=== PATIENT | male | born 2000 | race Caucasian/White ===

== ENCOUNTER → 2023-10-11 | Outpatient (CLI) | payer BC ==
[2023-10-11 09:49] VITALS: BP 166/85; PULSE 64; RESP 17; TEMP 97.9
--- NOTE | 2023-10-11 10:10 | P.GSHP ---
History of Present Illness H&P Date: 10/11/23 Chief Complaint: mass left breast Toni is a 23 year old white male seen in consultation for DR. Banerjee regarding a left breast mass. He noted the lump about 3 months ago, it was tender when he noted this. He states several years ago he had a right breast lump and it went away on it's own. He had an ultrasound done at [facility] on 08-09-23. He is not complaining of any recent trauma or infection of his breast. Is not complaining of any testicular lumps or masses. He has never had any surgery on his breast. Findings reveal a 4 mm also mass in the left breast felt to be most likely benign and repeat ultrasound in 3 months was recommended. It has circumscribed margins but no clear posterior acoustic enhancement. Caffeine: 4 to 5 pops/day nicotine: vapes chocolate: occasional Family History: paternal uncle: skin cancer, ? type Surgical History: nevis removed left ankle concern for cancer multiple other nevi removed Medical History: depression difficulty with sleep Social History: nicotine: vapes alcohol: daily beers marijuana: stopped 10 months ago, used to smoke daily - Constitutional Constitutional: Denies chills, Denies fever - EENT Eyes: denies blurred vision, denies pain Ears: deny: decreased hearing, tinnitus Ears, nose, mouth and throat: Denies headache, Denies sore throat - Breasts Breasts: bilateral: as per HPI - Cardiovascular Cardiovascular: Denies chest pain, Denies shortness of breath - Respiratory Respiratory: Denies cough, Denies 7 - Gastrointestinal Gastrointestinal: Denies abdominal pain, Denies diarrhea, Denies nausea, Denies vomiting - Genitourinary (Male) Genitourinary: Denies dysuria, Denies hematuria - Musculoskeletal Musculoskeletal: Denies myalgias - Integumentary Integumentary: Denies pruritus, Denies rash - Neurological Neurological: Denies numbness, Denies weakness - Psychiatric Psychiatric: Reports depression - Endocrine Endocrine: Denies fatigue, Denies weight change - Hematologic/Lymphatic Comment: none - Allergic/Immunologic Allergic/Immunologic: Reports as per HPI Past Medical History Past Medical History: Asthma Additional Past Medical History / Comment(s): CHILDHOOD ASTHMA History of Any Multi-Drug Resistant Organisms: None Reported Past Surgical History: No Surgical Hx Reported Past Anesthesia/Blood Transfusion Reactions: No Reported Reaction Past Psychological History: ADD/ADHD, Depression Smoking Status: Current every day smoker Past Alcohol Use History: Occasional Past Drug Use History: Marijuana Medications and Allergies Home Medications Medication Instructions Recorded Confirmed Type Multivitamin [Multivitamins Adult 1 tab PO DAILY 10/11/23 10/11/23 History Gummies] Sertraline [Zoloft] 50 mg PO DAILY 10/11/23 10/11/23 History hydrOXYzine HCL 25 mg PO HS 10/11/23 10/11/23 History Allergies Allergy/AdvReac Type Severity Reaction Status Date / Time Tetanus Vaccines and Toxoid Allergy Swelling Unverified 10/11/23 09:30 Face [place] Allergy Rash/Hives Uncoded 10/11/23 09:30 Surgical - Exam Vital Signs Temp Pulse Resp BP Pulse Ox 97.9 F 64 17 166/85 97 10/11/23 09:36 10/11/23 09:36 10/11/23 09:36 10/11/23 09:36 10/11/23 09:36 - General moderate distress - Eyes normal ocular movement - Neck trachea midline - Cardiovascular Rhythm: regular Heart Sounds: normal: S1, S2 - Abdomen Abdomen: soft, non tender, no guarding, no rigid, no rebound - Genitourinary no testicular masses normal penis with no external lesions, testicles non-tender - Integumentary normal turgor/ multiple tattoos - Neurologic no disoriented, no combative - Musculoskeletal normal gait - Psychiatric oriented to time, oriented to person, oriented to place, speech is normal, memory intact Breast Exam: Right breast: Multi-positional exam no dominant masses or nodules of concern Right axilla: No adenopathy of concern Left breast: Multi-positional exam firm nodularity posterior to the nipple areolar complex/may be consistent with gynecomastia Left axilla: No adenopathy of concern Results ultrasound reviewed Assessment and Plan Assessment: Impression: Mass directly behind the left nipple areolar complex most likely consistent with gynecomastia Ultrasound reviewed Plan: Repeat ultrasound 3 months in November for appointment at that time To follow up sooner any questions or concerns Cc: Dr. Banerjee
== END ==
LOC: WWCWWP 09:03
PROVIDERS: ATTEND Surgery
DX: F17.290 Nicotine dependence, other tobacco product, uncomplicated (principal); J45.909 Unspecified asthma, uncomplicated; N63.20 Unspecified lump in the left breast, unspecified quadrant; Z88.7 Allergy status to serum and vaccine; Z91.018 Allergy to other foods

== ENCOUNTER → 2023-11-12 | Outpatient (CLI) | payer BC ==
--- NOTE | 2023-11-12 08:38 | USB ---
Reason for Exam: Clinical finding. Technique: Method: Whole Breast Handheld. Findings: The whole breast of both breasts, the axilla of both breasts and the retroareolar of both breasts were scanned. There is a 0.5 x 0.3 x 0.6 cm anechoic structure in the periareolar region 12:00 position. This is small but appears cystic. This was present previously measuring 0.4 x 0.3 x 0.2 cm. Short-term follow-up recommended. No suspicious abnormality evident by ultrasound within the left breast. Overall Assessment: Probably benign, BI-RAD 3 Management: Diagnostic Breast Ultrasound of the right breast in 3 months. A clinical breast exam by your physician is recommended on an annual basis and results should be correlated with mammographic findings. This exam should not preclude additional follow-up of suspicious palpable abnormalities. Results were given to the patient verbally at the time of exam. Electronically signed and approved by: Marcelino Robb D.O. Radiologis
== END | disposition home or self-care (01) ==
LOC: RADUSWWP 08:01
PROVIDERS: ATTEND Surgery
DX: N63.10 Unspecified lump in the right breast, unspecified quadrant (principal); N63.20 Unspecified lump in the left breast, unspecified quadrant

== ENCOUNTER → 2023-11-28 | Outpatient (CLI) | payer BC ==
--- NOTE | 2023-11-28 15:08 | P.PN ---
Subjective Progress Note Date: 11/28/23 mass left breast Toni is a 23 year old white male seen in consultation for DR. Banerjee regarding a left breast mass. He noted the lump about 3 months ago, it was tender when he noted this. He states several years ago he had a right breast lump and it went away on it's own. He had an ultrasound done at [facility] on 08-09-23. He is not complaining of any recent trauma or infection of his breast. Is not complaining of any testicular lumps or masses. He has never had any surgery on his breast. Findings reveal a 4 mm also mass in the left breast felt to be most likely benign and repeat ultrasound in 3 months was recommended. It has circumscribed margins but no clear posterior acoustic enhancement. ultrasound bilateral breast 11-12-[address] Carrillo, probable left breast gynecomastia, right breast cyst; recently has begun to feel some nodularity behind the right nipple areolar complex in addition to behind the left nipple areolar complex. No other lumps masses or nodules of concern in either breast. Caffeine: 4 to 5 pops/day nicotine: vapes chocolate: occasional Family History: paternal uncle: skin cancer, ? type Surgical History: nevis removed left ankle concern for cancer multiple other nevi removed Medical History: depression difficulty with sleep Social History: nicotine: vapes alcohol: daily beers marijuana: stopped 10 months ago, used to smoke daily - Constitutional Constitutional: Denies chills, Denies fever - EENT Eyes: denies blurred vision, denies pain Ears: deny: decreased hearing, tinnitus Ears, nose, mouth and throat: Denies headache, Denies sore throat - Breasts Breasts: bilateral: as per HPI - Cardiovascular Cardiovascular: Denies chest pain, Denies shortness of breath - Respiratory Respiratory: Denies cough - Gastrointestinal Gastrointestinal: Denies abdominal pain, Denies diarrhea, Denies nausea, Denies vomiting - Genitourinary (Male) Genitourinary: Denies dysuria, Denies hematuria - Musculoskeletal Musculoskeletal: Denies myalgias - Integumentary Integumentary: Denies pruritus, Denies rash - Neurological Neurological: Denies numbness, Denies weakness - Psychiatric Psychiatric: Reports depression - Endocrine Endocrine: Denies fatigue, Denies weight change - Hematologic/Lymphatic Comment: none - Allergic/Immunologic Allergic/Immunologic: Reports as per HPI Past Medical History Past Medical History: Asthma Additional Past Medical History / Comment(s): CHILDHOOD ASTHMA History of Any Multi-Drug Resistant Organisms: None Reported Past Surgical History: No Surgical Hx Reported Past Anesthesia/Blood Transfusion Reactions: No Reported Reaction Past Psychological History: ADD/ADHD, Depression Smoking Status: Current every day smoker Past Alcohol Use History: Occasional Past Drug Use History: Marijuana Medications and Allergies Home Medications Medication Instructions Recorded Confirmed Type Multivitamin [Multivitamins Adult 1 tab PO DAILY 10/11/23 10/11/23 History Gummies] Sertraline [Zoloft] 50 mg PO DAILY 10/11/23 10/11/23 History hydrOXYzine HCL 25 mg PO HS 10/11/23 10/11/23 History Allergies Allergy/AdvReac Type Severity Reaction Status Date / Time Tetanus Vaccines and Toxoid Allergy Swelling Unverified 10/11/23 09:30 Face [place] Allergy Rash/Hives Uncoded 10/11/23 09:30 Objective - Constitutional General appearance: Present: cooperative - EENT Eyes: Present: EOMI ENT: Present: hearing grossly normal - Neck Neck: Present: normal ROM - Respiratory Respiratory: bilateral: CTA - Cardiovascular Heart sounds: normal: S1, S2 - Gastrointestinal General gastrointestinal: Present: soft - Integumentary Integumentary: Present: normal turgor - Musculoskeletal Musculoskeletal: Present: gait normal - Psychiatric Psychiatric: Present: A&O x's 3, appropriate affect, intact judgment & insight - Additional findings Additional findings: Patient: Inspection: Breast appear symmetric Palpation: Right breast: Multi positional exam slight nodularity behind the nipple areolar complex otherwise no dominant masses or nodules of concern Right axilla: No adenopathy of concern Left breast: Multi positional exam nodularity behind the nipple areolar complex, otherwise no dominant masses or nodules of concern Left axilla: No adenopathy of concern Ultrasound personally reviewed with Dr. Carrillo, findings in the left breast consistent with gynecomastia, small cyst noted in the right breast Assessment and Plan Assessment: Impression: Lateral gynecomastia Plan: Bilateral mammogram with appointment to follow this CC: Dr. Banerjee
[2023-11-28 15:22] VITALS: BP 138/84; PULSE 73; RESP 17; TEMP 98.3
== END ==
LOC: WWCWWP 14:53
PROVIDERS: ATTEND Surgery
DX: N62 Hypertrophy of breast (principal); J45.909 Unspecified asthma, uncomplicated; F32.A Depression, unspecified; F98.8 Other specified behavioral and emotional disorders with onset usually occurring in childhood and adolescence; F90.9 Attention-deficit hyperactivity disorder, unspecified type; F12.90 Cannabis use, unspecified, uncomplicated; F17.290 Nicotine dependence, other tobacco product, uncomplicated; Z88.7 Allergy status to serum and vaccine; Z88.8 Allergy status to other drugs, medicaments and biological substances

== ENCOUNTER → 2023-12-05 | Outpatient (CLI) | payer BC ==
--- NOTE | 2023-12-05 10:25 | MM ---
Reason for Exam: Clinical finding. Baseline mammogram. Indicated Problems: Pain of both sides (Global) for 3 Week(s). Prior Study Comparison: Patient's first Mammogram. Tissue Density: The breast tissue is almost entirely fat. Findings: Analyzed By CAD. Retroareolar densities seen bilaterally which may reflect gynecomastia. Recent ultrasound recommended follow-up in January 2024. Overall Assessment: Probably benign, BI-RAD 3 Management: Diagnostic Breast Ultrasound of both breasts in 3 months. . Results were given to the patient verbally at the time of exam. Patient should continue monthly self-breast exams. A clinical breast exam by your physician is recommended on an annual basis. This exam should not preclude additional follow-up of suspicious palpable abnormalities. Note on Angelika scores and lifetime risk: 1. A Angelika score greater than 3% is considered moderate risk. If this is the case, consider specialist referral to assess eligibility for a risk reducing agent. 2. If overall lifetime risk for the development of breast cancer is 20% or higher, the patient may qualify for future screening with alternating mammogram and breast MRI. Electronically signed and approved by: Moe Matt M.D. Radiologis
== END | disposition home or self-care (01) ==
LOC: RADMAMWWP 09:18
PROVIDERS: ATTEND Surgery
DX: R92.313 Mammographic fatty tissue density, bilateral breasts (principal); N64.4 Mastodynia
CPT/HCPCS: 77062; 77066

== ENCOUNTER 2025-02-26 18:17 | Emergency (ER) | payer BC ==
--- NOTE | 2025-02-26 19:17 | ED ---
General Adult HPI - General Chief complaint: Abdominal Pain Stated complaint: Abd pain Time Seen by Provider: 02/26/25 18:39 Source: patient, RN notes reviewed, old records reviewed Mode of arrival: ambulatory Limitations: no limitations - History of Present Illness Initial comments: 25-year-old male presenting for evaluation of intermittent left flank pain. Patient was diagnosed with kidney stone within the last 2 weeks and he has been following with his primary care provider. He had an outpatient ultrasound and abdominal x-ray. Patient states that currently he does not have any flank pain but when he urinates he has pain into his left flank. He also has had intermittent hematuria. No fevers. No vomiting. Patient denies any pain complaints at the time my evaluation and denies chronic medical conditions. - Related Data Home Medications Medication Instructions Recorded Confirmed Multivitamin [Multivitamins Adult 1 tab PO DAILY 10/11/23 11/28/23 Gummies] Sertraline [Zoloft] 50 mg PO DAILY 10/11/23 11/28/23 hydrOXYzine HCL 25 mg PO HS 10/11/23 11/28/23 Previous Rx's Medication Instructions Recorded Ibuprofen [Motrin] 600 mg PO Q8HR PRN #24 tab 02/26/25 Tamsulosin [Flomax] 0.4 mg PO DAILY #7 cap 02/26/25 Allergies Allergy/AdvReac Type Severity Reaction Status Date / Time Tetanus Vaccines and Toxoid Allergy Swelling Verified 02/26/25 18:28 Face [place] Allergy Rash/Hives Uncoded 02/26/25 18:28 Review of Systems ROS Statement: Those systems with pertinent positive or pertinent negative responses have been documented in the HPI. ROS Other: All systems not noted in ROS Statement are negative. Past Medical History Past Medical History: Asthma Additional Past Medical History / Comment(s): CHILDHOOD ASTHMA History of Any Multi-Drug Resistant Organisms: None Reported Past Surgical History: No Surgical Hx Reported Past Anesthesia/Blood Transfusion Reactions: No Reported Reaction Past Psychological History: ADD/ADHD, Depression Smoking Status: Current every day smoker Past Alcohol Use History: Occasional Past Drug Use History: Marijuana General Exam Limitations: no limitations General appearance: alert, in no apparent distress Head exam: Present: atraumatic, normocephalic Eye exam: Present: normal appearance, PERRL ENT exam: Present: normal exam Neck exam: Present: normal inspection. Absent: tenderness, meningismus Respiratory exam: Present: normal lung sounds bilaterally. Absent: respiratory distress, wheezes Cardiovascular Exam: Present: regular rate, normal rhythm GI/Abdominal exam: Present: soft. Absent: distended, tenderness, guarding Extremities exam: Present: normal inspection, normal capillary refill Back exam: Absent: CVA tenderness (R), CVA tenderness (L) Neurological exam: Present: alert, oriented X3, CN II-XII intact. Absent: motor sensory deficit Psychiatric exam: Present: normal affect, normal mood Skin exam: Present: warm, dry, intact. Absent: cyanosis, diaphoretic Course Vital Signs 02/26/25 18:26 Temperature 97.8 F Pulse Rate 73 Respiratory 16 Rate Blood Pressure 146/88 O2 Sat by Pulse 100 Oximetry Medical Decision Making - Medical Decision Making Was pt. sent in by a medical professional or institution (, PA, [facility]AY[facility] WINDER, urgent care, hospital, or senior living...) When possible be specific @ -No Did you speak to anyone other than the patient for history (EMS, parent, family, police, friend...)? What history was obtained from this source @ -No Did you review nursing and triage notes (agree or disagree)? Why? @ -I reviewed and agree with nursing and triage notes Were old charts reviewed (outside hosp., previous admission, EMS record, old EKG, old radiological studies, urgent care reports/EKG's, senior living records)? Report findings @ -No old charts were reviewed Differential Abdominal Pain Men: Appendicitis, cholecystitis, diverticulosis, ischemic bowel, pancreatitis, hepatitis, UTI, gastroenteritis, AAA, incarcerated hernia, bowel obstruction, constipation, inflammatory bowel, hepatitis, peptic ulcer disease, splenic infarction, perforated viscus, testicular torsion, this is not meant to be an all-inclusive list EKG interpreted by me (3pts min.). @ -As above X-rays interpreted by me (1pt min.). @ -None done CT interpreted by me (1pt min.). @CT abdomen pelvis shows obstructing UVJ kidney stone on the left. 3 mm U/S interpreted by me (1pt. min.). @ -None done What testing was considered but not performed or refused? (CT, X-rays, U/S, labs)? Why? @ -None What meds were considered but not given or refused? Why? @ -None Did you discuss the management of the patient with other professionals (professionals i.e. DrFrederick, PA, RAYON WINDER, lab, RT, psych nurse, social media job titles, roofing applicator, teacher, correction officer city or county jail, egg caser)? Give summary @ -No Was smoking cessation discussed for >3mins.? @ -No Was critical care preformed (if so, how long)? @ -No Were there social determinants of health that impacted care today? How? (Homelessness, low income, unemployed, alcoholism, drug addiction, transportation, low edu. Level, literacy, decrease access to med. care, penitentiary, rehab)? @ -No Was there de-escalation of care discussed even if they declined (Discuss DNR or withdrawal of care, Hospice)? DNR status @ -No What co-morbidities impacted this encounter? (DM, HTN, Smoking, COPD, CAD, Cancer, CVA, ARF, Chemo, Hep., AIDS, mental health diagnosis, sleep apnea, morbid obesity)? @ -None Was patient admitted / discharged? Hospital course, mention meds given and route, prescriptions, significant lab abnormalities, going to OR and other pertinent info. @ 25-year-old male with left-sided flank pain. Patient urinalysis is showing RBCs and the patient was diagnosed with renal stone. He was told that this may be in his bladder this was based on x-ray. CT today confirms a stone in the UVJ 3 mm stone. Patient will require urological follow-up as it has been present for approximately 2 weeks. Undiagnosed new problem with uncertain prognosis? @ -No Drug Therapy requiring intensive monitoring for toxicity (Heparin, Nitro, Insulin, Cardizem)? @ -No Were any procedures done? @ -No Diagnosis/symptom? @ -Obstructing renal stone Acute, or Chronic, or Acute on Chronic? @ -Acute Uncomplicated (without systemic symptoms) or Complicated (systemic symptoms)? @ -Default Side effects of treatment? @ -No Exacerbation, Progression, or Severe Exacerbation? @ -No Poses a threat to life or bodily function? How? (Chest pain, [place], [place], pneumonia, PE, COPD, DKA, ARF, appy, cholecystitis, CVA, Diverticulitis, Homicidal, Suicidal, threat to staff... and all critical care pts) @ -No - Lab Data Lab Results 02/26/25 Range/Units 19:08 Urine Color Light Yellow Urine Appearance Turbid (Clear) Urine pH 7.0 (5.0-8.0) Ur Specific [place] 1.018 (1.001-1.035) Urine Protein Negative (Negative) Urine Glucose (UA) Negative (Negative) Urine Ketones Negative (Negative) Urine Blood Moderate H (Negative) Urine Nitrite Negative (Negative) Urine Bilirubin Negative (Negative) Urine Urobilinogen <2.0 (<2.0) mg/dL Ur Leukocyte Esterase Negative (Negative) Urine RBC 67 H (0-5) /hpf Urine WBC 5 (0-5) /hpf Urine Bacteria Rare H (None) /hpf Urine Mucus Rare H (None) /hpf Disposition Clinical Impression: Calculus of kidney, Abdominal pain Disposition: HOME SELF-CARE Condition: Good Instructions (If sedation given, give patient instructions): Renal Colic (ED), Kidney Stones (ED) Prescriptions: Tamsulosin [Flomax] 0.4 mg PO DAILY #7 cap Ibuprofen [Motrin] 600 mg PO Q8HR PRN #24 tab PRN Reason: Pain Is patient prescribed a controlled substance at d/c from ED?: No Referrals: Steffen Banerjee MD [Primary Care Provider] - 1-2 days Domingo Teresa MD [STAFF PHYSICIAN] - 1-2 days Time of Disposition: 20:08
[2025-02-26 19:28] LABS: Appearance,Urine Turbid (Clear); Bacteria,Urine Rare /hpf; Bilirubin,Urine Negative (Negative); Blood,Urine Moderate (Negative); Color,Urine Light Yellow; Glucose,Urine (UA) Negative (Negative); Ketones,Urine Negative (Negative); Leukocyte Esterase,Urine Negative (Negative); Mucus,Urine Rare /hpf; Nitrite,Urine Negative (Negative); Protein,Urine Negative (Negative); RBC,Urine 67 /hpf (0-5); Specific Gravity,Urine 1.018 (1.001-1.035); Urobilinogen,Urine <2.0 mg/dL (<2.0); WBC,Urine 5 /hpf (0-5)
--- NOTE | 2025-02-26 20:04 | CT ---
EXAMINATION TYPE: CT abdomen pelvis wo con DATE OF EXAM: 02/26/2025 7:13 PM COMPARISON: None. CLINICAL INDICATION: Male, 25 years old with history of flank pain, hx of kidney stones, Pt presents to ED for kidney stone pain ongoing for the past few weeks. Pt c/o left sided abdominal pain. TECHNIQUE: Axial images were obtained from above the diaphragm to the pubic rami in the axial plane a t 5 mm thick sections. Reconstructed images are reviewed on the computer in the coronal plane. CONTRAST: mL of . Study performed without Oral Contrast DLP: 752.7 mGycm, Automated exposure control for dose reduction was used. FINDINGS: Limited CT sections are obtained the lung bases. The lung bases are clear. CT ABDOMEN: Liver: Normal Spleen: Normal Pancreas: Normal Adrenal glands: The adrenal glands are normal. Gallbladder: Normal Kidneys: No masses are evident. No hydronephrosis is present. Minimal distal left hydroureter is pres ent. No cysts are present. Punctate nonobstructing renal stones bilaterally. Aorta: Vascular calcification is within the aorta. Inferior vena cava: Normal. CT PELVIS: Loops of bowel within the abdomen and pelvis are normal. There are loops of bowel which are incom pletely distended or lack oral contrast limiting their evaluation. There are scattered mesenteric lymph nodes which are enlarged. No periaortic or retrocaval lymph node s. No suspicious enlarged inguinal or iliac chain adenopathy Appendix: Normal as visualized. Urinary bladder: There is a 0.3 cm calcification at the left ureterovesical junction. Genitourinary structures: Prostate is prominent Osseous structures: No suspicious lytic or sclerotic lesions. IMPRESSION: 1. 0.3 cm obstructing distal left ureteral vesicle junction stone with minimal hydroureter. No hydro nephrosis is evident. 2. Scattered nonenlarged mesenteric lymph nodes [facility], , 02/26/2025 8:01 PM
[2025-02-26 20:26] VITALS: BP 143/87; PULSE 68; RESP 18; TEMP 98
== END 2025-02-26 20:33 | disposition home or self-care (01) ==
LOC: EC 18:17
DX: N20.2 Calculus of kidney with calculus of ureter (principal); R10.9 Unspecified abdominal pain; F17.200 Nicotine dependence, unspecified, uncomplicated; Z88.7 Allergy status to serum and vaccine; Z88.8 Allergy status to other drugs, medicaments and biological substances
CPT/HCPCS: 74176; 81001; 99284